=== PATIENT | female | born 1930 | race Caucasian/White ===

== ENCOUNTER 2018-07-04 10:21 | Inpatient (IN) | payer MEDICARE, BC ==
[~2018-07-04] VITALS: Ht 167.6 cm; Wt 68.5 kg
[2018-07-04 10:42] LABS: BASOPHILS % 0.6 % (0.0-2.0); EOSINOPHILS % 1.8 % (0.0-5.0); HEMATOCRIT. 40.5 % (42.0-52.0); HEMOGLOBIN. 13.5 g/dL (14.0-18.0); LYMPHOCYTES % 35.9 % (20.0-50.0); MEAN CORPUSCULAR HEMOGLOBIN 29.2 pg (28.0-32.0); MEAN CORPUSCULAR VOLUME 87.5 fL (80.0-94.0); MEAN PLATELET VOLUME 7.7 fl (7.4-10.4); MONOCYTES % 7.5 % (2.0-8.0); NEUTROPHILS % 54.2 % (40.0-76.0); PLATELET 313 x1000/uL (130-400); RED BLOOD CELL COUNT 4.64 mill/uL (4.7-6.1); RED CELL DISTRIBUTION WIDTH 13.8 % (11.6-14.6)
[2018-07-04] MEDS ORDERED: LABETALOL 5MG/ML SYR 20 MG/4 ML SYRINGE IV PRN (10:45)
[2018-07-04 10:49] LABS: CHLORIDE 108 mEq/L (98-107)
[2018-07-04 10:50] LABS: INR 1.1; PROTHROMBIN TIME 10.6 sec (9.1-11.1)
[2018-07-04 10:53] LABS: ETHANOL BLOOD < 10 mg/dL
[2018-07-04 10:56] LABS: LDL CHOLESTEROL 131 mg/dL (5-100)
[2018-07-04] MEDS ORDERED: LABETALOL HCL 20MG/4ML CARPUJECT IV PRN (11:00)
[2018-07-04] MEDS ORDERED: ASPIRIN 325MG TABLET PO ONE (11:30)
[2018-07-04 11:58] LABS: CLARITY URINE CLEAR (CLEAR); COLOR URINE YELLOW (YELLOW); KETONES URINE NEGATIVE (NEGATIVE); LEUKOCYTE ESTERASE URINE NEGATIVE (NEGATIVE); NITRITE URINE NEGATIVE (NEGATIVE); OCCULT BLOOD URINE NEGATIVE (NEGATIVE); PH URINE 5.5 (4.5-8.0); PROTEIN URINE NEGATIVE (NEGATIVE); SPECIFIC GRAVITY URINE 1.006 (1.005-1.030); UROBILINOGEN URINE 0.2 E.U./dL (0.2-1.0)
[2018-07-04 12:27] LABS: *AMPHETAMINES SCREEN URINE NEGATIVE (NEGATIVE); *BARBITURATES SCREEN URINE NEGATIVE (NEGATIVE); *BENZODIAZEPINES SCREEN URINE NEGATIVE (NEGATIVE); *COCAINE SCREEN URINE NEGATIVE (NEGATIVE); METHADONE URINE SCREEN NEGATIVE (NEGATIVE); OPIATES URINE SCREEN NEGATIVE (NEGATIVE)
[2018-07-04 12:28] LABS: CANNABINOID URINE SCREEN NEGATIVE (NEGATIVE); PHENCYCLIDINE URINE SCREEN NEGATIVE (NEGATIVE)
[2018-07-04] MEDS ORDERED: CLONIDINE 0.1MG TABLET PO PRN (14:30)
[2018-07-04] MEDS ORDERED: GUAIFENESIN 200MG/10ML SUGAR FREE UDC PO PRN (14:30)
[2018-07-04] MEDS ORDERED: ACETAMINOPHEN 325MG TABLET PO PRN (14:30)
[2018-07-04] MEDS ORDERED: DOCUSATE SODIUM 100MG CAPSULE PO PRN (14:30)
[2018-07-04] MEDS ORDERED: MAGNESIUM/ALUMINUM HYDROXIDE/SIMETHICONE 30ML UDC PO PRN (14:30)
[2018-07-04] MEDS ORDERED: ONDANSETRON HCL 4MG/2ML INJ IV PRN (14:30)
[2018-07-04 19:23] VITALS: BP 183/86
[2018-07-04 20:00] VITALS: BP 116/65
[2018-07-04] MEDS ORDERED: ALPR0.5T PO (20:00)
[2018-07-04] MEDS ORDERED: LEVO300T2 PO (20:00)
[2018-07-04] MEDS ORDERED: OMEP20TA15 PO (20:07)
[2018-07-04] MEDS ORDERED: LEVO50TA PO (20:07)
[2018-07-04] MEDS ORDERED: METO25TA6 PO (20:07)
[2018-07-04] MEDS ORDERED: DULO60CA44 PO (20:07)
[2018-07-04] MEDS ORDERED: ALPR-339 PO (20:07)
[2018-07-04] MEDS: AMLODIPINE 5MG TABLET PO SCH (21:56)
[2018-07-04] MEDS: ATORVASTATIN CALCIUM 20MG TABLET PO SCH (21:56)
[2018-07-04] MEDS: METOPROLOL TARTRATE 25MG TABLET PO SCH (21:57)
[2018-07-05] VITALS: BP 144/76
[2018-07-05 04:00] VITALS: BP 141/66
[2018-07-05 06:47] LABS: BASOPHILS % 0.7 % (0.0-2.0); EOSINOPHILS % 1.7 % (0.0-5.0); HEMATOCRIT. 38.9 % (36.0-48.0); HEMOGLOBIN. 12.9 g/dL (12.0-16.0); LYMPHOCYTES % 33.9 % (20.0-50.0); MEAN CORPUSCULAR VOLUME 87.2 fL (81.0-99.0); MEAN PLATELET VOLUME 7.8 fl (7.4-10.4); MONOCYTES % 9.3 % (2.0-8.0); NEUTROPHILS % 54.4 % (40.0-76.0); PLATELET 323 x1000/uL (130-400); RED BLOOD CELL COUNT 4.46 mill/uL (4.2-5.4)
[2018-07-05 07:45] LABS: CHLORIDE 109 mEq/L (98-107)
[2018-07-05 07:55] LABS: T4 FREE 0.95 ng/dL (0.76-1.46)
[2018-07-05 07:57] LABS: LDL CHOLESTEROL 123 mg/dL (5-100)
[2018-07-05 07:58] LABS: HDL CHOLESTEROL 47 mg/dL (40-59)
[2018-07-05] MEDS ORDERED: ALPRAZOLAM 0.25 MG TABLET PO PRN (10:15)
[2018-07-05] MEDS: ASPIRIN 81MG EC TABLET PO SCH (10:28)
[2018-07-05] MEDS: AMLODIPINE 5MG TABLET PO SCH ×2 (10:28→21:50)
[2018-07-05] MEDS: METOPROLOL TARTRATE 25MG TABLET PO SCH ×2 (10:29→21:50)
[2018-07-05] MEDS: DULOXETINE HCL 60MG DR CAPSULE PO SCH (12:00)
[2018-07-05] MEDS: OMEPRAZOLE 20MG CAPSULE EXTENDED RELEASE PO SCH (12:00)
[2018-07-05] MEDS: LEVOTHYROXINE SODIUM 50MCG TABLET PO SCH (12:00)
[2018-07-05 16:00] VITALS: BP 124/58
[2018-07-05 20:00] VITALS: BP 130/74
[2018-07-05] MEDS: ATORVASTATIN CALCIUM 20MG TABLET PO SCH (21:49)
[2018-07-06] VITALS: BP 120/61
[2018-07-06 04:00] VITALS: BP 151/72
[2018-07-06 06:42] LABS: CHLORIDE 108 mEq/L (98-107)
[2018-07-06 06:49] LABS: BASOPHILS % 0.7 % (0.0-2.0); EOSINOPHILS % 3.2 % (0.0-5.0); HEMATOCRIT. 37.4 % (36.0-48.0); HEMOGLOBIN. 12.5 g/dL (12.0-16.0); LYMPHOCYTES % 38.2 % (20.0-50.0); MEAN CORPUSCULAR HEMOGLOBIN 29.1 pg (28.0-32.0); MEAN CORPUSCULAR VOLUME 87.2 fL (81.0-99.0); MEAN PLATELET VOLUME 7.9 fl (7.4-10.4); MONOCYTES % 9.7 % (2.0-8.0); NEUTROPHILS % 48.2 % (40.0-76.0); PLATELET 319 x1000/uL (130-400); RED BLOOD CELL COUNT 4.29 mill/uL (4.2-5.4); RED CELL DISTRIBUTION WIDTH 13.9 % (11.6-14.6)
[2018-07-06 08:00] VITALS: BP 147/76
[2018-07-06] MEDS: ASPIRIN 81MG EC TABLET PO SCH (08:38)
[2018-07-06] MEDS: AMLODIPINE 5MG TABLET PO SCH (08:38)
[2018-07-06] MEDS: METOPROLOL TARTRATE 25MG TABLET PO SCH (08:38)
[2018-07-06] MEDS: LEVOTHYROXINE SODIUM 50MCG TABLET PO SCH (08:38)
[2018-07-06] MEDS: DULOXETINE HCL 60MG DR CAPSULE PO SCH (08:38)
[2018-07-06] MEDS: OMEPRAZOLE 20MG CAPSULE EXTENDED RELEASE PO SCH (08:38)
== END 2018-07-06 12:12 | disposition home or self-care (01) | DRG 69 ==
LOC: ER 10:21 → EDSEX 10:21 → 7WST 12:30 → EDBEDREQTM 12:37 → EDBEDREQ 12:37 → EDBEDREQSVC 12:37 → ENRESERV 14:00 → SUPCPDRO 14:39
PROVIDERS: ADMIT Hospitalist; ATTEND Hospitalist
DX: G45.9 Transient cerebral ischemic attack, unspecified (principal); E03.9 Hypothyroidism, unspecified; E78.5 Hyperlipidemia, unspecified; I10 Essential (primary) hypertension; I25.10 Atherosclerotic heart disease of native coronary artery without angina pectoris; F41.9 Anxiety disorder, unspecified; H91.90 Unspecified hearing loss, unspecified ear; I34.1 Nonrheumatic mitral (valve) prolapse; Z96.649 Presence of unspecified artificial hip joint
CPT/HCPCS: 36415; 70551; 71045; 80061; 80305; 82962; 83036; 83721; 83735; 83880; 84439; 84443; 84481; 84484; 85379; 86850; 86900; 93005; 93306; 93880; 93970; 96374; 97162; 97166; 99285; G0482; J3490